=== PATIENT | male | born 1945 | race Caucasian/White ===

== ENCOUNTER 2018-09-03 17:14 | Emergency (ER) | payer OTHER ==
[2018-09-03 17:47] VITALS: TEMP 98.1
--- NOTE | 2018-09-03 19:09 | ED PDOC ---
HPI: Hypertension/Hypotension Time Seen by Provider: 09/03/18 17:50 Chief Complaint (Nursing): High Blood Pressure Chief Complaint (Provider): Concern for high BP/HR History Per: Patient History/Exam Limitations: no limitations Onset/Duration Of Symptoms: Mins Current Symptoms Are (Timing): Gone Now Associated Symptoms: denies: Chest Pain, Dyspnea, Dizziness, Blurred Vision, Focal Weakness, Headache Additional Complaint(s): Patient is a 73 year old male who presents to ED secondary to concern for high BP/HR. Patient reports that he was singing karaoke at home when he realized that his HR was fluctuating between 105-110. Patient sat down and stopped singing and symptoms resolved. Patient reports he thought if his HR was high, his blood pressure would also be elevated. Patient reports he is compliant with his HTN regimen, which includes Metoprolol 100mg daily, Amlodipine 5mg BID, and Hydralazine 50mg BID. Patient has no physical complaints at present. Denies chest pain, SOB, diaphoresis, dizziness, headache, numbness/weakness, cough, N/V, abdominal pain. PMD: Vanessa Moses Balloon Maker: Varun Past Medical History Reviewed: Historical Data, Nursing Documentation, Vital Signs Vital Signs: Last Vital Signs Temp 98.1 F 09/03/18 17:45 Pulse 98 H 09/03/18 18:50 Resp 18 09/03/18 18:50 BP 151/79 H 09/03/18 18:50 Pulse Ox 99 09/03/18 18:50 - Medical History PMH: Asthma, Benign Prostatic Hyperplasia, CAD, GERD, HTN, Hypercholesterolemia Other PMH: Sinusitis - Surgical History Surgical History: Hernia Repair - Family History Family History: States: Unknown Family Hx - Social History Current smoker - smoking cessation education provided: No - Home Medications Home Medications: Ambulatory Orders Medication Instructions Recorded RX: Metoprolol Tartrate [Lopressor] 50 mg PO TID 01/17/16 RX: amLODIPine [Norvasc] 5 mg PO DAILY 01/17/16 RX: Aspirin [Adult Low Dose 81 mg PO DAILY 04/02/16 Aspirin EC] RX: Dutasteride 0.5 mg PO DAILY 04/02/16 RX: Ergocalciferol (Vitamin D2) 2,000 unit PO DAILY 04/02/16 [Vitamin D2] RX: Ranitidine HCl [Acid Drop Wire Builder] 150 mg PO BID 04/02/16 RX: amLODIPine [Norvasc] 2.5 mg PO HS 04/02/16 RX: hydrALAZINE [Apresoline] 50 mg PO BID 04/02/16 Dutasteride [Dutasteride] 0.5 mg PO DAILY 04/03/16 - Allergies Allergies/Adverse Reactions: Allergies Allergy/AdvReac Type Severity Reaction Status Date / Time acetaminophen Allergy RASH Verified 03/08/16 00:53 [From Contac Cold-Flu Day and Night] chlorpheniramine Allergy RASH Verified 03/08/16 00:53 [From Contac Cold-Flu Day and Night] phenylephrine HCl Allergy RASH Verified 03/08/16 00:53 [From Contac Cold-Flu Day and Night] Review of Systems ROS Statement: Except As Marked, All Systems Reviewed And Found Negative Cardiovascular: Positive for: Other (tachycardia - now resolved) Physical Exam - Reviewed Nursing Documentation Reviewed: Yes Vital Signs Reviewed: Yes - Physical Exam Comments: GENERALIZED APPEARANCE: Patient is awake, alert, oriented x3 in no acute distress. Resting comfortably. SKIN: warm and dry; (-) cyanosis (-) diaphoresis. EYES: (-) conjunctival pallor. ENMT: Mucous membranes moist. Airway patent, (-) stridor. NECK:Supple, FROM (-) JVD. CHEST AND RESPIRATORY: (-) use of accessory muscles, (-)rales (-) rhonchi, (-) wheezes; breath sounds equal bilaterally. Respirations even and nonlabored. HEART AND CARDIOVASCULAR:Regular rate and rhythm (-) irregularity (-) tachycardia ABDOMEN AND GI: Soft; (-) distention, (-) tenderness, (-) palpable pulsatile mass. EXTREMITIES: (-) deformity; (-) calf tenderness, (-) edema, (+) distal pulses NEURO AND PSYCH: Mental status as above. Cranial nerves grossly intact; strength symmetric.Gait: steady. Speech: clear. (-) facial asymmetry - ECG O2 Sat by Pulse Oximetry: 99 (RA) Pulse Ox Interpretation: Normal Medical Decision Making Medical Decision Making: Initial Impression: Concern for high blood pressure and tachycardia Plan: -secured entrance monitor, continuous -EKG -Re-evaluation 1840 EKG: SR @98 bpm (-) ST elevation, QTc 454 Repeat BP: 151/79 On re-evaluation, patient offers no complaints. On exam, patient remains AAOx3, in no acute distress. Lungs clear to auscultation, cardiac RRR, abdomen soft, non-tender, repeat neuro exam shows no focal findings. Vitals have remained stable on monitor throughout ED visit. Lab/Diagnostic results d/w the patient in great detail. Diagnosis of hyperte nsion, concern for tachycardia d/w the patient. Based on history, exam and diagnostic results, plan will be for outpatient follow up with PMD/cardiology. Patient instructed to follow-up with pmd / referral provided / the clinic in 1- 2 days without fail. Advised to take medication as prescribed from primary doctor. Return to the emergency room at any time for any new or worsening symptoms. Patient states he fully agrees with and understands discharge instructions. States that he agrees with the plan and disposition. Verbalized and repeated discharge instructions and plan. I have given the patient opportunity to ask any additional questions. Disposition - Clinical Impression Clinical Impression: Elevated blood pressure reading, Elevated heart rate with elevated blood pressure and diagnosis of hypertension - Patient ED Disposition Is Patient to be Admitted: No Counseled Patient/Family Regarding: Studies Performed, Diagnosis, Need For Followup - Disposition Referrals: Nirmal Moses MD [Family Provider] - Disposition: Routine/Home Disposition Time: 19:35 Condition: STABLE Additional Instructions: CONTINUE YOUR DAILY MEDICATION REGIMEN AND FOLLOW UP WITH PRIMARY DOCTOR WITHIN THE WEEK. The emergency medical care you received today was directed towards the acute presenting symptoms. If you were prescribed any medication, please fill it and give as directed. It may take several days for your symptoms to resolve. Return to the Emergency Department at any time if symptoms worsen, do not improve, or if any other problems arise. Please contact your doctor in 2 days for re-evaluation and follow up / or call one of the physicians/clinics you have been referred to that are listed on the Patient Visit Information form that is included in your discharge packet. Bring any paperwork you were given at discharge with you along with any medications to your follow up visit. Our treatment cannot replace ongoing medical care by a primary care provider (PCP) outside of the emergency department. Instructions: High Blood Pressure in Adults, DASH Diet, Tachycardia, Controlling Your Blood Pressure Through Lifestyle, Medicines for High Blood Pressure, Hypertension (ED) Forms: [employer] (Nicaraguan) Print Language: NORTHER[place] IRISH - POA Present On Arrival: None
[2018-09-03 19:47] VITALS: BP 142/90; PULSE 87; RESP 16
--- NOTE | 2018-09-04 10:06 | CARD ---
APPROVED REPORT Date of service: 09/03/2018 EKG Measurement Heart [id number] <Conclusion> Sinus rhythm with premature atrial complexes Otherwise normal ECG
[2018-09-05 11:12] VITALS: O2SAT 99
== END 2018-09-03 19:47 | disposition home or self-care (01) ==
LOC: H.ER 17:14
DX: I10 Essential (primary) hypertension (principal); R00.0 Tachycardia, unspecified; E78.00 Pure hypercholesterolemia, unspecified; I25.10 Atherosclerotic heart disease of native coronary artery without angina pectoris; Z79.82 Long term (current) use of aspirin